=== PATIENT | female | born 2000 | race Caucasian/White ===

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

== ENCOUNTER → 2021-06-13 09:18 | Outpatient (CLI) | payer OTHER, SELFPAY ==
[2021-06-13 11:49] LABS: SARS-CoV-2 RNA PCR Positive
== END ==
PROVIDERS: PCP Pediatrics; Visit Provider Pediatrics
DX: U07.1 COVID-19 (principal)
CPT/HCPCS: C9803; U0003; U0005

== ENCOUNTER 2022-05-22 06:46 | Emergency (ER) | payer OTHER, SELFPAY ==
--- NOTE | ~2022-05-22 | CT_ITS ---
CT Abdomen and Pelvis with contrast. History: Abdominal pain. Spiral CT of the abdomen and pelvis was performed after the administration of intravenous contrast. 1 00 cc of Omnipaque 350 was administered intravenously without complication. Dose reduction technique was used on this scan by utilizing automated exposure control and iterative reconstruction technique. The dose-length product (DLP) was 439.44 mGy-cm. Findings: Scans through the lung bases demonstrate mild atelectatic change. The liver, spleen, pancreas, gallbladder, adrenals and kidneys are within normal limits. No evidence of aortic aneurysm. No lymphadenopathy is seen. There is no evidence of bowel obstruction. There is no evidence to suggest acute appendicitis or dive rticulitis. Images through the pelvis were performed. Urinary bladder unremarkable. No adnexal mass seen. No asci alfredo. No ascites is seen. Impression: No significant abnormalities seen. Reviewed, dictated and finalized at [facility]. NG MACHINE FEEDER Impression: No significant abnormalities seen.
[2022-05-22 06:50] VITALS: BP 123/73; PULSE 116; RESP 18; TEMP 36.4; O2SAT 99
--- NOTE | 2022-05-22 07:07 | ED.ABDPAIN ---
HPI - Abdominal Pain General Chief Complaint: Abdominal Pain Stated Complaint: abdominal pain Time Seen by Provider: 05/22/22 07:01 History of Present Illness HPI narrative: 21-year-old female with no past medical history states that she has been having nausea, vomiting, and right lower quadrant abdominal pain since 1 this morning, last meal was 6:30 PM, she has also been having diarrhea. Has never had symptoms like this in the past, still has her appendix. No fevers or chills. No burning or pain with urination. No vaginal discharge. Related Data Allergies Allergy/AdvReac Type Severity Reaction Status Date / Time No Known Allergies Allergy Verified 05/22/22 06:47 Review of Systems Review of Systems: CONST: No fever. HEENT: No sore throat C/V: No chest pain RESP: No cough GI: Reports abdominal pain, nausea, vomiting[, diarrhea] : No dysuria. M/S: No joint pain. SKIN: No rash. NEURO: [No headache or focal numbness or weakness] PSYCH: [No depression] [facility] Past Medical History Medical History (Updated 05/22/22 @ 09:30 by Lizzy Murphy MD) No significant active problems Surgical History Surgical History (Updated 05/22/22 @ 07:08 by Lizzy Murphy MD) No significant past surgical history Exam Narrative: EXAMINATION OF ORGAN SYSTEMS/BODY AREAS: Constitutional: Vital signs per nursing GENERAL:[No acute distress, non-toxic appearing.] HEAD: Normal with no signs of head trauma. EYES: EOMI, conjunctiva normal ENT: Hearing grossly intact LUNGS: Nonlabored breathing. HEART: [Regular rate and rhythm] ABD: [Soft], [minimally tender to deep palpation RLQ], no guarding or distension EXT: Normal range of motion SKIN: [No rashes or lesions.] NEURO: [Alert and oriented x 3. No gross focal sensory or strength deficits.] PSYCH: Normal affect Course Vital Signs Vital signs: Vital Signs Temperature 97.5 F L 05/22/22 06:50 Pulse Rate 116 H 05/22/22 06:50 Respiratory Rate 18 05/22/22 06:50 Blood Pressure 123/73 05/22/22 06:50 Pulse Oximetry 99 05/22/22 06:50 Oxygen Delivery Room Air 05/22/22 06:50 Temperature 97.5 F L 05/22/22 06:50 Pulse Rate 116 H 05/22/22 06:50 Respiratory Rate 18 05/22/22 06:50 Blood Pressure 123/73 05/22/22 06:50 Pulse Oximetry 99 05/22/22 06:50 Oxygen Delivery Room Air 05/22/22 06:50 MDM - Abdominal Pain MDM Narrative Medical decision making narrative: Electronic medical record was reviewed. Patient presented to the ED with complaint of [abdominal pain and vomiting]. Vitals [were within acceptable limits]. Physical exam revealed soft abdomen, overall well-appearing patient, with minimal tenderness to deep palpation of the right lower quad. Based on the patient's history and physical exam, my differential includes but is not limited to [gastroenteritis, cholecystitis, appendicitis, UTI]. [IV access was established by nursing staff. Patient was given zofran, morphine, IV fluids]. CBC, BMP, lipase, LFTs, bilirubin and alk phos were obtained. Labs were pertinent for elevated white count. [Decision was made to obtain a CT-abdomen to evaluate for acute abdominal process. CT-abdomen per my and radiology interpretation is unremarkable for acute intra-abdominal process, no signs of hydronephrosis, cholecystitis, appendicitis.] On reevaluation, the patient states that they are feeling much better. There were no witnessed episodes of vomiting in the emergency department. They are not complaining of any new abdominal pain. Repeat examination did not show any significant guarding or rebound. No new tenderness. Repeat heart rate is under 100. At this time I do not feel there is any further emergent treatment to be provided. The patient was given strict return precautions, if they are to develop any worsening abdominal pain, vomiting, or blood in the vomit they are to return to the emergency department immediately. Patient verbally acknowledges understanding these direc
[2022-05-22 07:10] LABS: Basophils Percent Auto 0.2 % (0.2-1.2); Eosinophils Absolute Auto 0.1 K/mm3 (0-0.3); Eosinophils Percent Auto 1.1 % (0-4.4); Hematocrit 45.5 % (37.0-47.0); Hemoglobin 15.6 g/dL (12.0-15.0); Immature Granulocyte Absolute 0.04 K/mm3 (0.00-0.031); Immature Granulocyte Percent A 0.3 % (0-0.5); Lymphocytes Absolute Auto 0.51 K/mm3 (0.9-3.2); Lymphocytes Percent Auto 4.2 % (18.3-44.2); Mean Corpuscular HGB Conc 34.3 g/dl (32-36); Mean Corpuscular Volume 90.3 fl (80-100); Mean Platelet Volume 10.5 fl (7.4-10.4); Monocytes Absolute Auto 0.7 K/mm3 (0.1-0.6); Monocytes Percent Auto 5.9 % (2.6-8.5); Neutrophils Absolute Auto 10.7 K/mm3 (1.3-6.7); Neutrophils Percent Auto 88.3 % (45.5-73.1); Platelet Count Result 271 k/mm3 (150-375); Red Blood Count 5.04 M/mm3 (4.2-5.4); Red Cell Distribution Width 13.5 % (11.5-14.5); White Blood Count 12.1 K/mm3 (4.5-10.0)
[2022-05-22] MEDS: MORPHINE SULFATE (*CRX) 4 MG/ML INJ IV PUSH (07:12)
[2022-05-22] MEDS: ONDANSETRON INJ 4 MG/2 ML VIAL IV PUSH (07:12)
[2022-05-22] MEDS: LACTATED RINGERS 1,000 ML 999 ML IV CONT ×2 (07:13→08:46)
[2022-05-22 07:20] LABS: Alanine Aminotransferase 22 U/L (6-35); Albumin Level 4.8 g/dL (3.5-5.1); Alkaline Phosphatase 71 U/L (38-126); Anion Gap 7 mmol/L (8-16); Aspartate Amino Transferase 32 U/L (14-36); Bilirubin,Total 0.6 mg/dL (0.2-1.3); Blood Urea Nitrogen 18 mg/dL (7-17); Carbon Dioxide 26 mmol/L (22-30); Chloride 104 mmol/L (98-107); Estimated CRCL calculation 115 ml/min; Estimated Glomerular Filt Rate > 60; Glucose 111 mg/dL (65-110); Lipase 65 U/L (23-300); Potassium 3.9 mmol/L (3.4-5.0); Sodium 137 mmol/L (137-145)
[2022-05-22 08:29] LABS: Mucus Urine Rare /lpf; RBC Urine 0-2 /hpf (0-2); Squamous Epithelial Cell Urine Occasional /hpf (Few); WBC Urine 0-3 /hpf
[2022-05-22 08:30] LABS: Add Urine Microscopic? YES; Appearance Urine Clear (Clear); Bilirubin Urine Negative (Negative); Blood Urine Negative (Negative); Color Urine Yellow (Yellow); Glucose Urine UA Negative (Negative); Ketones Urine 2+ mg/dL (Negative); Leukocyte Esterase Ur Negative LEU/UL (Negative); Nitrate Urine Negative (Negative); Protein Urine Negative (Negative); pH Urine 8.5 (5.0-9.0)
[2022-05-22 09:37] VITALS: BP 127/86; PULSE 98; RESP 19; O2SAT 100
== END 2022-05-22 09:39 | disposition home or self-care (01) ==
PROVIDERS: Emergency Medicine; Emergency Provider Emergency Medicine; PCP Family Medicine
DX: R11.2 Nausea with vomiting, unspecified (principal); R19.7 Diarrhea, unspecified
CPT/HCPCS: 36415; 74177; 80053; 81001; 81025; 83690; 85025; 96361; 96374; 96375; 99284; J2270; J2405; J7120; Q9967

== ENCOUNTER 2022-06-22 09:26 | Outpatient (CLI) | payer OTHER, SELFPAY ==
[2022-06-22 09:50] LABS: Basophils Percent Auto 0.5 % (0.2-1.2); Eosinophils Absolute Auto 0.1 K/mm3 (0-0.3); Eosinophils Percent Auto 2.4 % (0-4.4); Hematocrit 43.6 % (37.0-47.0); Hemoglobin 14.9 g/dL (12.0-15.0); Immature Granulocyte Absolute 0.01 K/mm3 (0.00-0.031); Immature Granulocyte Percent A 0.2 % (0-0.5); Lymphocytes Absolute Auto 1.75 K/mm3 (0.9-3.2); Lymphocytes Percent Auto 30.5 % (18.3-44.2); Mean Corpuscular HGB Conc 34.2 g/dl (32-36); Mean Corpuscular Hemoglobin 30.2 pg (26-34); Mean Corpuscular Volume 88.3 fl (80-100); Mean Platelet Volume 10.5 fl (7.4-10.4); Monocytes Absolute Auto 0.6 K/mm3 (0.1-0.6); Monocytes Percent Auto 9.9 % (2.6-8.5); Neutrophils Absolute Auto 3.2 K/mm3 (1.3-6.7); Neutrophils Percent Auto 56.5 % (45.5-73.1); Platelet Count Result 289 k/mm3 (150-375); Red Blood Count 4.94 M/mm3 (4.2-5.4); Red Cell Distribution Width 12.9 % (11.5-14.5); White Blood Count 5.7 K/mm3 (4.5-10.0)
[2022-06-22 10:02] LABS: Potassium 3.9 mmol/L (3.4-5.0)
[2022-06-22 10:05] LABS: Chloride 106 mmol/L (98-107); Sodium 140 mmol/L (137-145)
[2022-06-22 10:06] LABS: Anion Gap 5 mmol/L (8-16); Blood Urea Nitrogen 14 mg/dL (7-17); Calcium 9.4 mg/dL (8.4-10.2); Carbon Dioxide 29 mmol/L (22-30); Estimated Glomerular Filt Rate > 60; Glucose 93 mg/dL (65-110)
[2022-06-22 10:33] LABS: Thyroid Stimulating Hormone 0.856 uIU/mL (0.465-4.680)
[2022-06-22 10:41] LABS: Vitamin D 25 Hydroxy 38.8 ng/mL
== END 2022-06-22 09:27 | disposition home or self-care (01) ==
PROVIDERS: PCP Family Medicine; Visit Provider Physician Assistant Medical
DX: R53.81 Other malaise (principal); R53.82 Chronic fatigue, unspecified; R63.1 Polydipsia; Z76.89 Persons encountering health services in other specified circumstances; E55.9 Vitamin D deficiency, unspecified
CPT/HCPCS: 36415; 80048; 82306; 82607; 84443; 85025

== ENCOUNTER 2022-10-09 10:17 | Outpatient (CLI) | payer OTHER, SELFPAY ==
[2022-10-11 16:19] LABS: Quantiferon TB Plus, 1T NEGATIVE (NEGATIVE); TB1-NIL <0.00 IU/mL; TB2-NIL <0.00 IU/mL
== END 2022-10-09 10:18 | disposition home or self-care (01) ==
LOC: ANHLAB 10:19
PROVIDERS: PCP Family Medicine; Visit Provider Physician Assistant Medical
DX: Z23 Encounter for immunization (principal)
CPT/HCPCS: 36415; 86480

== ENCOUNTER 2024-10-23 11:12 | Outpatient (CLI) | payer OTHER, SELFPAY ==
--- OUTSIDE RECORDS SUMMARY | 2024-10-23 11:15 | XMS_ITS | Referral Summary ---
Author Organization [address] Address [address] [place] [phone] Care Team Providers Care Salesperson [employer] Name Role Phone Frankie Kim MD Primary Care Provider Allergies No known active allergies Medications Xulane 150-35 mcg/24 hr 2 Active ondansetron ODT (ZOFRAN-ODT) 4 mg disintegrating tablet Take 1 tablet (4 mg total) by mouth every 8 (eight) hours as needed for nausea or vomiting 20 tablet [address] (PROTONIX) 20 mg EC tablet Take 1 tablet (20 mg total) by mouth daily 20 tablet 5 04/19/19 26 Active Active Problems No known active problems Social History Tobacco Use Types Packs/Day Years Used Date Smoking Tobacco: Never Assessed Personal Safety Answer Date Recorded Have you ever been in or are you currently in a harmful physical or emotional relationship or is someone making you feel afraid or unsafe? Denies 04/19/2024 Comments No Sex and Gender Information Value Date Recorded Sex Assigned at Not on file Legal Sex Female 7:46 PM HEALTH PROMOTER Gender Identity Not on file Sexual Orientation Not on file Last Filed Vital Signs Vital Sign Reading Time Taken Comments Blood Pressure 117/60 04/19/2024 12:30 PM HEALTH PROMOTER Pulse 96 04/19/2024 12:35 PM HEALTH PROMOTER Temperature 37.2 C (98.9 F) 04/19/2024 10:24 AM HEALTH PROMOTER Respiratory Rate 15 04/19/2024 10:49 AM HEALTH PROMOTER Oxygen Saturation 97% 04/19/2024 12:35 PM HEALTH PROMOTER Inhaled Oxygen Concentration - - Weight 81.6 kg (180 lb) 04/19/2024 10:24 AM HEALTH PROMOTER Height 167.6 cm (5' 6) 04/19/2024 10:24 AM HEALTH PROMOTER Body Mass Index 29.05 04/19/2024 10:24 AM HEALTH PROMOTER Plan of Treatment Not on file Insurance CHOICE PLUS [facility] H[facility]/PPO Address: [address] [place] [address] CHO[employer] PLUS [facility]/PPO Address: [address] [place] [address] CHO[employer] PLUS [facility]/PPO Address: [facility] [id number] [place] [address] Care Teams Salesperson [employer] Relationship Specialty Start Date End Date Frankie Kim MD [address] [place] [address] PCP - General Family Medicine 04/19/24
--- OUTSIDE RECORDS SUMMARY | 2024-10-23 11:16 | XMS_ITS | Clinical Summary ---
Author Organization [address] Address [address] [place] [phone] Care Team Providers Care Automatic Transmission Mechanic Name Role Phone Frankie Kim MD Primary [...] on file Legal Sex Female 7:46 PM TRIAGE RN Gender Identity Not on file Sexual Orientation Not on file Obstetrics History Last Filed Vital Signs Vital Sign Reading Time Taken Comments Blood Pressure 117/60 04/19/2024 12:30 PM TRIAGE RN Pulse 96 04/19/2024 12:35 PM TRIAGE RN Temperature 37.2 C (98.9 F) 04/19/2024 10:24 AM TRIAGE RN Respiratory Rate 15 04/19/2024 10:49 AM TRIAGE RN Oxygen Saturation 97% 04/19/2024 12:35 PM TRIAGE RN Inhaled Oxygen Concentration - - Weight 81.6 kg (180 lb) 04/19/2024 10:24 AM TRIAGE RN Height 167.6 cm (5' 6) 04/19/2024 10:24 AM TRIAGE RN Body Mass Index 29.05 04/19/2024 10:24 AM TRIAGE RN Plan of Treatment Health Maintenance Due Date Last Done Comments Cervical Cancer Screening 2001 Depression Screening 2001 Hepatitis C Screening 2001 Meningococcal B Vaccine (1 o f 2 - Standard) 2017 Regular Well Visit/Exam 18-64 10/04/2019 DTaP/Tdap/Td Vaccine (7 - Td or Tdap) 11/07/2022 11/07/2012, 09/26/2006, 01/16/2003, Additional history exists Covid-19 Vaccine (2023-2 5 season) 2023 08/30/2021, 07/25/2020 Influenza Vaccine (#1) 2024 Hepatitis B Screening Completed 10/10/2002 , 02/11/2002, 2001 Pneumococcal vaccine <65 Completed 003, 04/11/2002, 02/11/2002, Additional history exists Varicella Vaccines Completed 09/26/2006, 01/16/2003 HPV Vaccines Completed 05/12/2013, 12/15, 11/07/[address] [place] [address] [place] [address] CHOICE PLUS [employer] Care Teams Automatic Transmission Mechanic Relationship Specialty Start Date End Date Frankie Kim MD [address] [place] [address] PCP - General Family Medicine 04/19/24
[2024-10-23 12:17] LABS: Hematocrit 42.5 % (37.0-47.0); Hemoglobin 14.0 g/dL (12.0-15.0); Immature Granulocyte Percent A 0.2 % (0-0.5); Lymphocytes Absolute Auto 1.28 K/mm3 (0.9-3.2); Mean Corpuscular HGB Conc 32.9 g/dl (32-36); Mean Corpuscular Hemoglobin 30.1 pg (26-34); Mean Corpuscular Volume 91.4 fl (80-100); Nucleated Red Blood Cells Absolute Auto 0.000 K/mm3 (0.0-0.012); Nucleated Red Blood Cells Perc 0.0 % (0.0-0.2); Platelet Count Result 234 k/mm3 (150-375); Red Blood Count 4.65 M/mm3 (4.2-5.4); White Blood Count 4.1 K/mm3 (4.5-10.0)
[2024-10-23 12:34] LABS: Iron 79 ug/dL (37-170)
[2024-10-23 12:35] LABS: Anion Gap 9 mmol/L (4-12); Blood Urea Nitrogen 18 mg/dL (7-17); Calcium 9.6 mg/dL (8.4-10.2); Carbon Dioxide 25 mmol/L (22-30); Chloride 105 mmol/L (98-107); Estimated Glomerular Filt Rate > 60; Glucose 91 mg/dL (65-110); Potassium 3.9 mmol/L (3.4-5.0); Sodium 139 mmol/L (137-145)
[2024-10-23 12:45] LABS: Percent Iron Saturation 22 % (20-50)
[2024-10-23 13:09] LABS: Free T4 Free Thyroxine 0.97 ng/dL (0.78-2.19)
[2024-10-23 13:23] LABS: Thyroid Stimulating Hormone 1.780 uIU/mL (0.465-4.680)
[2024-10-23 13:46] LABS: Vitamin B12 322.0 pg/mL (239-931)
== END 2024-10-23 11:13 | disposition home or self-care (01) ==
PROVIDERS: PCP Family Medicine
DX: Z13.29 Encounter for screening for other suspected endocrine disorder (principal); R53.82 Chronic fatigue, unspecified; R53.81 Other malaise; R68.89 Other general symptoms and signs; R63.5 Abnormal weight gain; E03.9 Hypothyroidism, unspecified; E55.9 Vitamin D deficiency, unspecified; Z13.1 Encounter for screening for diabetes mellitus; Z13.0 Encounter for screening for diseases of the blood and blood-forming organs and certain disorders involving the immune mechanism
CPT/HCPCS: 36415; 80048; 82306; 82607; 82746; 83540; 83550; 84439; 84443; 85025; 86376

== ENCOUNTER 2024-11-02 10:24 | Outpatient (CLI) | payer OTHER, SELFPAY ==
--- OUTSIDE RECORDS SUMMARY | 2024-11-02 10:39 | XMS_ITS | Clinical Summary ---
Author Organization [address] Address [address] [place] [phone] Care Team Providers Care Toll Bridge Attendant Name Role Phone Frankie Kim MD Primary [...] on file Legal Sex Female 7:46 PM ORACLE ADF CONSULTANT Gender Identity Not on file Sexual Orientation Not on file Obstetrics History Last Filed Vital Signs Vital Sign Reading Time Taken Comments Blood Pressure 117/60 04/19/2024 12:30 PM ORACLE ADF CONSULTANT Pulse 96 04/19/2024 12:35 PM ORACLE ADF CONSULTANT Temperature 37.2 C (98.9 F) 04/19/2024 10:24 AM ORACLE ADF CONSULTANT Respiratory Rate 15 04/19/2024 10:49 AM ORACLE ADF CONSULTANT Oxygen Saturation 97% 04/19/2024 12:35 PM ORACLE ADF CONSULTANT Inhaled Oxygen Concentration - - Weight 81.6 kg (180 lb) 04/19/2024 10:24 AM ORACLE ADF CONSULTANT Height 167.6 cm (5' 6) 04/19/2024 10:24 AM ORACLE ADF CONSULTANT Body Mass Index 29.05 04/19/2024 10:24 AM ORACLE ADF CONSULTANT Plan of Treatment Health Maintenance Due Date [...] HPV Vaccines Completed 05/12/2013, 12/15, 11/07/2012 Insurance [facility] HMO/PPO Address: [facility] [address] [place], [place] [id number] [place] [address] CHOICE PLUS [facility] HMO/PPO Address: [address] [place] [address] CHOICE PLUS [facility] HMO/PPO Address: [address] [address] Care Teams Toll Bridge Attendant Relationship Specialty Start Date End Date Frankie Kim MD [address] [place] [address] PCP - General Family Medicine 04/19/24
--- OUTSIDE RECORDS SUMMARY | 2024-11-02 10:39 | XMS_ITS | Referral Summary ---
Author Organization [address] Address [address] [place] [phone] Care Team Providers Care Clinical Technician Name Role Phone Frankie Kim MD Primary Care Provider [phone] Allergies No known active allergies Medications Xulane [...] on file Legal Sex Female 7:46 PM ALUMINUM MOLDER Gender Identity Not on file Sexual Orientation Not on file Last Filed Vital Signs Vital Sign Reading Time Taken Comments Blood Pressure 117/60 04/19/2024 12:30 PM ALUMINUM MOLDER Pulse 96 04/19/2024 12:35 PM ALUMINUM MOLDER Temperature 37.2 C (98.9 F) 04/19/2024 10:24 AM ALUMINUM MOLDER Respiratory Rate 15 04/19/2024 10:49 AM ALUMINUM MOLDER Oxygen Saturation 97% 04/19/2024 12:35 PM ALUMINUM MOLDER Inhaled Oxygen Concentration - - Weight 81.6 kg (180 lb) 04/19/2024 10:24 AM ALUMINUM MOLDER Height 167.6 cm (5' 6) 04/19/2024 10:24 AM ALUMINUM MOLDER Body Mass Index 29.05 04/19/2024 10:24 AM ALUMINUM MOLDER Plan of Treatment Not on file Insurance [facility] H[facility]/PPO Address: [address] [place] [address] [facility] H[facility]/PPO Address: [address] [place] [address] [facility] H[facility]/PPO Address: [facility] [id number] [place] [address] Care Teams Clinical Technician Relationship Specialty Start Date End Date Frankie Kim MD [address] [place] [address] PCP - General Family Medicine 04/19/24
--- OUTSIDE RECORDS SUMMARY | 2024-11-02 10:39 | XMS_ITS | Data Portability ---
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 Patient will come back in a year unless there are new symptoms. [email or web address] Not available 12/25/2022 09:41:22 Plan of Treatment Reminders Order Date Submit Date Provider Last Modified By Organization Details Last Modified Time Details Appointments None recorded. Lab urinalysis, dipstick 2020 021 [email or web address] [place], [address], [place], [address], 14:59:54 Referral None recorded. Procedures None recorded. Surgeries None recorded. Imaging US, transvagina l 2020 021 [facility], [address], [address], [place], [address], 10:43:59 Medication Orders Lo Loestrin Fe 1 mg-10 mcg (24)/10 mcg (2) tablet 2022 023 [facility] [address] [place], [address], 3 11:02:55 Lo Loestrin Fe 1 mg-10 mcg (24)/10 mcg (2) tablet 2022 023 [facility] [address] [place], [address], 3 15:28:05 Junel FE / (28) 1 mg-20 mcg (21)/75 mg (7) tablet [email or web address] [facility] [address] [place], [address], 3 15:08:22 Patient TargetsNo targets recorded. Patient InstructionsNo instructions recorded. Reason for Referral None Reported. Results Created Date Observation Date Name Description Value Unit Range Abnormal Flag Note LastModifiedBy Organization Detail LastModifiedTime 10/19/19 21 10/18/2020 CT/GC (MICHAEL) , THINP REP VIAL chlamydia trachomatis, PCR Negati ve negati ve Not Available [facility] (Lab) [address], [place], [address], 10/20/2020 18:20:49 10/19/19 21 10/18/2020 CT/GC (MICHAEL) , THINP REP VIAL neisseria gonorrhoeae, PCR Negati ve negati ve Not Available [facility] (Lab) [address], [place], [address], 10/20/2020 18:20:49 10/19/19 21 10/18/2020 TRICH OMONA S VAGIN CHIO (RRNA ) trichomonas vaginalis ribosomal RNA (rrna) Negati ve negati ve Not Available [facility] (Lab) [address], [place], [address], 10/20/2020 18:20:50 11/10/19 21 11/09/2020 VAGIN ITIS/ VAGIN OSIS, DNA PROBE yudelka sp. detection, direct probe Negati ve negati ve Not Available [facility] (Lab) [address] [place], [address], 11/11/2020 06:31:19 11/10/19 21 11/09/2020 VAGIN ITIS/ VAGIN OSIS, DNA PROBE gardnerella vag. detection, direct probe Negati ve negati ve Not Available [facility] (Lab) [address] [place], [address], 11/11/2020 06:31:19 11/10/19 21 11/09/2020 VAGIN ITIS/ VAGIN OSIS, DNA PROBE trichomonas vag. detection, direct probe Negati ve negati ve Not Available [facility] (Lab) [address] [facility], [place], [address], 11/11/2020 06:31:19 11/10/19 21 11/09/2020 CULTU RE: URINE result report SEE RESULT S BELOW Test: Cultu re: Urine Speci men Sourc e: Urine Voide d Speci men Type: Urine Speci men Date: 2020 4:57 PM Resul t Date: 2020 5:27 AM Resul t Statu s: Final resul t Abnor mal: No Resul ting Lab: [facility] [address] [facility] [address] Tel: CULTU RE ----- ----- ----- --- No growt h in 1 day (dete ction level of 10,00 0 colon ies / ml.) Not Available [facility] (Lab) [address] [place], [address], 11/11/2020 06:31:20 11/10/19 21 11/09/2020 urina lysis , dipst ick Leukocytes TRACE Not Available [facility] [address], [place], [address], 11/09/2020 14:59:18 11/10/1911/09/2020 urina lysis , dipst ick Blood trace Not Available [place] [address], [place], [address], 11/09/2020 14:59:18 12/26/19 23 12/25/2022 IMAGE GUIDE D PAP, REFLE X HPV IF ASCUS ONLY image guided Pap, reflex HPV ASCUS only SEE RESULT S BELOW CASE REPOR T: Cytol ogy Gynec ologi kalyan Repor t Case: [id number] Autho tawny g Provi elva: Angy Garibay, BUSINESS SUPPORT LIAISON Colle cted: 12/25 1615 Order ing Locat ion: [place] [facility] Recei [place]: 12/26 [address]: Laxmi malik, [place], CT Speci men: Areli song Pap - Image d, Cervi x STATE MENT OF ADEQU ACY: Satis facto ry for evalu ation Trans forma tion zone compo nent prese nt FINAL DIAGN OSIS: Negat khushi for Intra epith elial Lesio n or Cindy knowles (NIL) . Elect amadorrachel alvarado sylvia d by Laxmi malik, [place], CT on 2022 at 3:47 PM ----- ----- ----- ----- ----- ----- ----- ----- ----- ----- ----- ----- ----- ----- ----- ----- ----- ---- COMME NT: This speci men was revie wed by a Cytot echno logis t and/o r Patho logis t (as indic ated in this repor t) after evalu ation using the Thinp rep Imagi ng Syste m. CLINI KALYAN INFOR MATIO N: Menst rual Statu s: LMP (if appli cable ): Clini kalyan Histo ry/Pr eviou s Pap: Type of Neopl chantel (if appli cable ): Signi fican t Clini kalyan Findi ngs: Other Histo ry: Hormo ondina (if appli cable ): PAP EDUCA SUSANA L NOTE: The Pap Test is a scree nohemi test with an inher ent false negat khushi rate. Liqui d-bas ed sampl ing may decre ase, but will not elimi dora, false negat khushi resul ts. A negat khushi resul t does not precl ude the prese nce and/o r devel opmen t of disea se, since the prese nce of abnor mal cells in the sampl e depen ds on the locat ion of the lesio n and sampl ing techn ique. Kahty nued regul ar scree nohemi is the best metho d of cance r preve ntion . If repor gigi cytol ogic findi ng do not corre late with physi kalyan and/o r histo rical findi ngs, furth er inves tigat ion is recom millie d, as clini ivy cavazos nted. Not Available [facility] (Lab) [address] [facility], [place], [address], 12/27/2022 16:51:47 12/26/19 23 12/25/2022 CT/GC (MICHAEL) , THINP REP VIAL chlamydia trachomatis, PCR Negati ve negati ve Not Available [facility] (Lab) [address] [place], [address], 12/27/2022 16:51:48 12/26/19 23 12/25/2022 CT/GC (MICHAEL) , THINP REP VIAL neisseria gonorrhoeae, PCR Negati ve negati ve Not Available [facility] (Lab) [address] [place], [address], 12/27/2022 16:51:48 12/26/19 23 12/25/2022 TRICH OMONA S VAGIN CHIO (RRNA ) trichomonas vaginalis ribosomal RNA (rrna) Negati ve negati ve Not Available [facility] (Lab) [address] [place], [address], 12/27/2022 16:51:48 11/01/19 21 10/31/2020 US, trans vagin al No observ ation record ed. [facility] [address], [place], [address], 10/31/2020 17:04:30 11/01/19 21 10/31/2020 US, trans vagin al No observ ation record ed. [email or web address] [facility] [address], [place], [address], 11/08/2020 10:35:55 Result Notes None recorded. Procedures Surgical History Date Name Laterality Status Provider Name and Address Organization Details Recorded Time 01/14/2020 tonsilecto my/adenoid s completed [facility] 09/26/2020 17:24:25 Imaging Results None recorded. Procedure Notes None recorded. Medical Equipment None Reported. Allergies Allergen ID Allergen Name Allergen Category Reaction Reaction Severity Criticality Documentation Date Start Date Code Code System Note Provider Name and Address Organization Details Recorded Time 12680 honey bee venom medicatio n Not available Not available Not available 09/26/2020 53495 7 RxNorm [facility] 17:15:17 Medications Name Sig Start Date Stop Date Status Note LastModified by Organization Details LastModified Time prednisone 10 mg tablet 09/24 completed Not Available Not Available Not Available ketoconazol e 2 % shampoo WASH TO SCALP/FAC E TWICE WEEKLY 09/24 completed Not Available Not Available Not Available azithromyci n 250 mg tablet 09/24 completed Not Available Not Available Not Available hydrocodone 5 mg-acetamin ophen 325 mg tablet TAKE 1 TABLET BY MOUTH EVERY 6 HOURS FOR 3 DAYS NEEDED FOR PAIN 10/18 completed Not Available Not Available Not Available metronidazo le 0.75 % (37.5 mg/5 gram) vaginal gel INSERT 1 APPLICATO RFUL VAGINALLY ONCE DAILY FOR 5 DAYS 09/24 completed Not Available Not Available Not Available prednisone 20 mg tablet 09/24 completed Not Available Not Available Not Available ciprofloxac in 500 mg tablet TAKE 1 TABLET BY MOUTH EVERY 12 HOURS 09/24 completed Not Available Not Available Not Available benzonatate 100 mg capsule 09/24 completed Not Available Not Available Not Available epinephrine 0.3 mg/0.3 mL injection, auto-inject or USE DIRECTED active Not Available Not Available No t Available methylpredn isolone 4 mg tablets in a dose pack FOLLOW PACKAGE DIRECTION S 09/24 completed Not Available Not Available Not Available albuterol sulfate HFA 90 mcg/actuati on aerosol inhaler INHALE 1 PUFF BY MOUTH EVERY 4 HOURS NEEDED FOR SHORTNESS OF BREATH OR WHEEZING 09/24 completed Not Available Not Available Not Available ondansetron 4 mg disintegrat ing tablet 09/24 completed Not Available Not Available Not Available fluticasone propionate 50 mcg/actuati on nasal spray,suspe nsion USE 2 SPRAY(S) IN EACH NOSTRIL ONCE DAILY 09/24 completed Not Available Not Available Not Available amoxicillin 875 mg-potassiu m clavulanate 125 mg tablet TAKE 1 TABLET BY MOUTH TWICE DAILY 09/24 completed Not Available Not Available Not Available escitalopra m 10 mg tablet TAKE 1 TABLET BY MOUTH DAILY active Not Available Not Available No t Available Junel FE 05/04 (28) 1 mg-20 mcg (21)/75 mg (7) tablet Take 1 tablet every day by oral route. 09/24 completed Not Available Not Available Not Available hydrocodone 7.5 mg-acetamin ophen 325 mg/15 mL oral solution 10/18 completed Not Available Not Available Not Available Lexapro 10/18 completed Not Available Not Available Not Available Vyvanse 30 mg capsule TAKE 1 CAPSULE BY MOUTH EVERY MORNING active Not Available Not Available No t Available Vyvanse 09/24 completed Not Available Not Available Not Available Lo Loestrin Fe 1 mg-10 mcg (24)/10 mcg (2) tablet Take 1 tablet every day by oral route. 2022 active Not Available Not Available Not Avai lable Vyvanse 10 mg capsule TAKE 1 CAPSULE BY MOUTH ONCE DAILY 10/18 completed Not Available Not Available Not Available Dupixent 300 mg/2 mL subcutaneou s syringe active Not Available Not Available No t Available Vitals Date Recorded Body height Body mass index (BMI) [Percentile] Per age and sex Body mass index (BMI) Body weight Systolic And Diastolic Provider Name and Address Organization Details Last Updated DateTime 09/24/2022 160.02 cm 86 % 27.3 kg/m2 10706.2 2 g 128/80 mm[Hg] Madeleine Kay [facility] 3 15:07:55 Date Recorded Body height Body mass index (BMI) Body mass index (BMI) [Percentile] Per age and sex Body weight Systolic And Diastolic Provider Name and Address Organization Details Last Updated DateTime 10/18/2020 160.02 cm 26 kg/m2 85 % 36032.0 8 g 117/69 mm[Hg] Yolanda Palacios [facility] 1 12:55:38 Date Recorded Body height Body mass index (BMI) Body mass index (BMI) [Percentile] Per age and sex Body weight Systolic And Diastolic Provider Name and Address Organization Details Last Updated DateTime 11/09/2020 160.02 cm 26.4 kg/m2 86 % 69713.2 6 g 110/70 mm[Hg] Abida Marte [facility] 1 14:51:01 Date Recorded Body height Body mass index (BMI) Body weight Systolic And Diastolic Provider Name and Address Organization Details Last Updated DateTime 12/25/2022 160.02 cm 27.3 kg/m2 72215.22 g 131/89 mm[Hg] Aubree Spears [facility] 12/25/2022 09:34:42 Social History Question Answer Notes LastModified by Organizat ion Details LastModified Time Tobacco Smoking Status Never Smoker Madeleine Kay [facility] 09/24/2022 15:09:15 Are You Blind Or Do You Have Difficulty Seeing? No Information n ot available 09/24/2022 In The 14 Days Before Symptom Onset, Have You Had Close Contact With A Laboratory-confirm ed COVID-19 While That Case Was Ill? No Information n ot available 09/24/2022 In The 14 Days Before Symptom Onset, Have You Had Close Contact With A Person Who Is Under Investigation For COVID-19 While That Person Was Ill? No Information not available 09/24/2022 Have You Been To An Area Known To Be High Risk For COVID-19? No Information not available 09/24/2022 Are You Deaf Or Do You Have Serious Difficulty Hearing? No Information not available 09/24/2022 Has Tobacco Cessation Counseling Been Provided? No Information not available 09/26/2020 Do You Have Difficulty Walking Or Climbing Stairs? No Information not available 09/24/2022 Sex: Unknown Functional Status Question Answer Note LastModified by Organizat ion Details LastModified Time Do you use any illicit or recreational drugs? No Information not available 09/26/2020 Do you or have you ever used any other forms of tobacco or nicotine? No Information not available 09/26/2020 What is your level of alcohol consumption? None Information not available 09/26/2020 Are you able to walk? YESWOREST Information not available 09/24/2022 Are you able to care for yourself? Yes Information n ot available 09/24/2022 Do you have difficulty dressing or bathing? No Information not available 09/24/2022 Mental Status None recorded. Family History Nothing Reported. Medical History Condition Response Allergies (Food, seasonal, environmental ) N Other N Breast Cancer N Drug/Latex Allergies/Reactions N Blood Transfusion N Dermatologic Disorders N Lung Disease N Defects or Inherited Disease N Breast Problem N Gestational Diabetes N Hematologic disorders N Anesthesia Complications N History of STI N Deep Vein Thrombosis N Polycystic ovary syndrome N Anxiety Disorder Y Autoimmune disease N Arthritis N Infertility N Polyps N Acid Reflux (GERD) N History of abnormal pap N Cancer N Stroke N Varicosities N Neurologic/Epilepsy Y Endometriosis N High Cholesterol N Headaches N Fibromyalgia N Kidney Disease N Heart Problems N Kidney or Bladder Problems N Thyroid Problems N GI Problems N Eating Disorder N Anemia N Art (IVF or FET) N Psychiatric Illness Y Ovarian Cancer N Diabetes N Pulmonary (TB, Asthma) N Hepatitis/Liver Disease N No Past Medical History N Eczema N Urinary Tract Infection N Abuse/Domestic Violence N Asthma N Trauma/Violence N Depression/ depression Y Heart Disease N Pre-Eclampsia N Hypertension N Osteoporosis N Thrombophilias N Gynecological History Statement/Question Response Flow Moderate Date of Last Mammogram Date of LMP 09/09/2022 STIs/STDs N HPV Vaccine Y Current Control Method None Sexually Active? Y Menses Monthly Y Date of Last Pap Smear Sexual Problems? N LMP Definite Obstetrics History GPAL:G 0 P 0 0 0 0 Type Value Living 0 Total 0 Past Encounters Encounter ID Performer Location Encounter Start Date Encounter Closed Date Diagnosis/Indication Diagnosis SNOMED-CT Code Diagnosis ICD10 Code Diagnosis Note [id number] Jaja Atiknson MD [place] [address],[place] [address] 09/26/2020 17:17:04 09/27/2020 15:35:56 Hemorrhagic cyst of ovary 816916371 N83.209 Initial pr escription of oral contraception 321878967 Z30.011 [id number] Jaja Atkinson MD [place] [address],[place] [address] 10/18/2020 12:46:08 10/18/2020 13:55:02 Gynecologic examination 05875942 Z01.419 Surveillan ce of oral contraception 178949260 Z30.41 [id number] Jaja Atkinson MD [place] [address],[place] [address] 10/31/2020 10:02:15 10/31/2020 10:41:16 Cyst of right ovary 1379574830 4997654 N83.291 [id number] Eduardo Tracy MD [place] [address],[place] [address] 11/09/2020 14:33:45 11/09/2020 15:38:34 Urinary symptoms 059270177 R39.9 this patient is a 20-year-ol d female presents for vaginal discharge and urinary symptoms. She states that she has watery vaginal discharge that is yellow. She denies any odor. She denies any itching. She reports urinary symptoms. Urinary symptoms consist of dysuria, urgency, and frequency. She has some tenderness above the bladder. She is examined. There was copious white watery discharge. Specimens were taken. The Distal vagina and vulva appeared normal. we agreed to treat with Metrogel and ciprofloxa alessandra. She will contact us if the watery vaginal discharge does not resolve. Her urine was positive for leuks and blood. To culture the urine. [id number] KAMILLE Berrios [place] [address],[place] [address] 09/24/2022 14:58:44 09/24/2022 15:28:42 Contraception care management 570829800 Z30.9 Discussed all control options in great detail. Pt would like to start ocp. She is aware of the risks and benefits. She does not have any medical condition that is contraindi cated with the use of estrogen containing control. Pt will start her pills on the first day following the start of her period. She is aware it is not effective for control the first month. She is also aware of the importance of taking at the same time every day. Encouraged use of condoms as the pill does not protect against STD's. Will return in 3 months for med check. Consent was read and signed. Pt verbalized understand ing.wants to try a lower dose OCPsample given x 1 month, rx sent to [facility] for med check in 3-4 monthsprec autions discussedS TI testing declined Time spent in visit is a total of 30 mins with at least 50% of visit consisting of counseling and review of plan of care. [id number] KAMILLE Berrios [place] [address],[place] [address] 12/25/2022 09:28:03 12/25/2022 11:13:22 Gynecologic examination 73249936 Z01.419 Z11.3 Z11.8 Take Calcium with Vitamin D 1200mg daily if not receiving in daily diet. It is strongly advised to have an annual flu shot and up can obtain at most pharmacies . If you have not had a TDap shot in the last 10 years you should obtain one as well. Discussed with patient & provided with informatio n regarding Gardisil vaccine to prevent the 4 strains for HPV that cause cervical cancer if under age 26. Encourage safe sexual practices, to use condoms and limit partners if not already in a monogamous relationsh ip. Do monthly self breast exams. Have mammogram yearly or every other year depending on family history. BRCA testing is now available for patients with strong genetic history of female cancer. If interested contact the office. Engage in daily exercise of low impact aerobic exercise 45-60 minutes 4-5 times weekly. Avoid tobacco and illicit drugs as well as using moderation with alcohol intake less than 1-2 8 oz beverages daily. This lifestyle behavior pattern will lead to less health conditions and longer life span. If BMI greater than 25 weight watchers or dietary consult advised. Patient received above instructio ns, and questions have been answered. If you have any questions please call or respond to this email. Patient was made aware of the patient portal and may obtain a paper copy of today's plan if desired.WW EBC - OCPvery happy with current OCP and desires to continuede nies any contraindi cationsr/b /a reviewed, refills sentprimar y pap collectedS TI testing added to papblood STI panel declinedUT D with PCP for routine labsRTC in 1 year or sooner if needed Contracept ion care management 027565389 Z30.9 Venereal d isease screening 285589339 Z11.3 Health Concerns Section Related Observation LastModified by Organization Detai ls LastModified Time None Recorded Concern Status LastModified by Organization Details LastModified Time None Recorded Advance Directives Directive None Recorded Payers Insurance Date Sequence Insurance Name Policy Number Policy Coelho Covered Member ID Coelho Member ID Guarantor Name 12/22/2022 1 [employer] [id number] Benitez Echavarria [id number] Griselda Echavarria 09/21/2022 2 [employer] [id number] Katiana Samano [id number] Griselda Echavarria Notes Date Note Type Note Provider Name and Address Organization Details Recorded Time 10/18/2020 text/html Patient is a 20y o G0 who presents for an annual exam. Has FU US for hemorrhagic cyst next week- pain is resolved. last WWE-none sexually active-y HPV vaccine-y contraception-ocp seatbelts-y exercise-y depression-denies domestic violence-denies tobacco-n concerns- Jaja Atkinson MD [address], [place], [address], [place] [facility] 10/18/2020 13:49:55 11/09/2020 text/html this patient is a 20-year-old female presents for vaginal discharge and urinary symptoms. She states that she has watery vaginal discharge that is yellow. She denies any odor. She denies any itching. She reports urinary symptoms. Urinary symptoms consist of dysuria, urgency, and frequency. She has some tenderness above the bladder. She is examined. There was copious white watery discharge. Specimens were taken. The Distal vagina and vulva appeared normal. we agreed to treat with Metrogel and ciprofloxacin. She will contact us if the watery vaginal discharge does not resolve. Her urine was positive for leuks and blood. To culture the urine. Eduardo Tracy MD [address], [place], [address], [facility] 11/09/2020 15:20:06 09/24/2022 text/html 21yopresents for BC consultWas on an OCP in the past, stopped due to not being SA. Recently in a new relationship, using condoms.wants to discuss all BC methods today, concerned about possible negative mood changes. Did notice she was more emotional when taking OCP previouslydenies ever having thoughts of harming herself or othersdenies any hx of DVT/PE, HTN, Stroke/IN, cancer, liver disease, or migraine with aura KAMILLE Berrios [address], [place], [address], [facility] 09/24/2022 15:28:35 12/25/2022 text/html Annual GYNReport ed bypatient.Menstrual cycle:Normal menses Urinary symptoms:No hematuria; No incontinence Vulva:No genital lesion Vagina:Normal vaginal discharge Breast:No breast pain; No breast lump; No nipple discharge Current Contraception:Satisfi ed with current contraception; Oral contraceptives Sexual complaints:No sexual complaints; No pain during intercourse; Normal libido Menopausal Symptoms:No menopausal symptoms; Normal vaginal lubrication Psychological symptoms:No depression; No anxiety; No PMDD Preventive measures:Encourage self breast examination; Encourage regular exercise; Encourage no tobacco use; Encourage regular mammograms starting age 40 KAMILLE Berrios [address], [place], [address], [facility] 12/25/2022 11:03:18 OBGyn Episode No OBEpisode recorded.
[2024-11-03 07:09] LABS: Cytomegalovirus (CMV) Ab, IgG <0.60 U/mL (0.00-0.59); Cytomegalovirus (CMV) Ab, IgM <30.0 AU/mL (0.0-29.9)
[2024-11-03 13:08] LABS: EBV Nuclear Antigen Ab, IgG 285.0 U/mL (0.0-17.9)
== END 2024-11-02 10:25 | disposition home or self-care (01) ==
LOC: ANHLAB 10:25
PROVIDERS: PCP Family Medicine
DX: D72.9 Disorder of white blood cells, unspecified (principal); R79.89 Other specified abnormal findings of blood chemistry
CPT/HCPCS: 86644; 86645; 86664; 86665